=== PATIENT | female | born 1965 | race African-American/Black ===

== ENCOUNTER 2020-05-04 13:44 | Emergency (ER) | payer BC, OTHER ==
[2020-05-06 12:21] LABS: SARS-CoV-2 MS2 Positive; SARS-CoV-2 N Gene Positive; SARS-CoV-2 S Gene Positive; SARS-CoV-2 by NAA DETECTED (NotDetected); SARS-CoV-2 orf1ab Positive
== END 2020-05-04 14:50 | disposition home or self-care (01) ==
LOC: NAV ERS 13:44
DX: U07.1 COVID-19 (principal); I10 Essential (primary) hypertension
CPT/HCPCS: 87635; 99283; U0003